=== PATIENT | female | born 1960 ===

== ENCOUNTER 2023-10-13 18:23 | Outpatient (CLI) | payer OTHER ==
--- NOTE | 2023-10-14 11:28 | Ultrasound Report ---
PROCEDURE: Pelvic w/Transvaginal INDICATIONS: AUB TECHNIQUE: Real-time scanning was performed of the pelvic organs, with image documentation. Additional endovagi nal scanning was necessary due to incomplete visualization of the adnexal and endometrial structures by transabdominal scanning. COMPARISON: None. FINDINGS: Uterus: Uterus is anteverted and normal in size at 7.3 x 4.0 x 6.1 cm. The myometrium is heterogene ous. The endometrium measures 8 mm in combined thickness. Cystic changes in the endometrium in the l ower uterine segment. Multiple uterine fibroids as below. 1. 4.3 x 3.6 x 4.9 cm subserosal uterine fibroid in the right lateral wall 2. 1.5 x 1.4 x 1.5 cm intramural fibroid in the mid posterior wall 3. 1.9 x 2.0 x 2.0 cm intramural fibroid in the left anterior wall. Ovaries: The right ovary measures 1.8 x 1.0 x 1.5 cm, with a calculated ovarian volume of 1.5 cc. T he left ovary measures 1.8 x 1.7 x 1.5 cm, with a calculated ovarian volume of 2.4 cc. The ovaries h ave a normal sonographic appearance. Less than 12 follicles can be seen in each ovary. No adnexal m asses are seen. No cystic lesions measuring greater than 3 cm. Other: No pathologic free abdominal or pelvic fluid. IMPRESSION: 1.Thickened endometrium with cystic changes, raising concern for endometrial hyperplasia versus carci noma. 2.Multiple uterine fibroids. Reviewed by: Xochilt Salazar MD on 10/14/2023 11:27 AM PDT Approved by: Xochilt Salazar MD on 10/14/2023 11:27 AM PDT Station ID: [id number]
== END 2023-10-13 18:24 | disposition home or self-care (01) ==
LOC: DI 18:23
PROVIDERS: ATTEND Family Medicine
DX: N93.9 Abnormal uterine and vaginal bleeding, unspecified (principal); R93.89 Abnormal findings on diagnostic imaging of other specified body structures; D25.2 Subserosal leiomyoma of uterus; D25.1 Intramural leiomyoma of uterus